=== PATIENT | male | born 1940 | race Caucasian/White ===

== ENCOUNTER 2022-08-12 10:02 | Emergency (ER) | payer MEDICARE, SELFPAY ==
[2022-08-12 10:25] VITALS: BP 167/82; PULSE 54; RESP 15; TEMP 36.3; O2SAT 98; BMI 23.5
--- NOTE | 2022-08-12 10:33 | DI.RAD.S_ITS ---
PROCEDURE: XR RIBS RT MIN 3V W CXR 1V INDICATIONS: rib injury TECHNIQUE: 2 views of the right ribs were acquired, along with a single view chest. COMPARISON: None. FINDINGS: Surgical changes and devices: None. Bones and chest wall: Concern for right anterior 5th rib fracture. No suspicious bony lesions. Overlying soft tissues appear unremarkable. Lungs and pleura: No pleural effusions or pneumothorax. Lungs appear clear. Mediastinum: Mediastinal contours appear normal. Heart size is normal. IMPRESSION: Concern for right anterior 5th rib fracture. Dictated by: Amado Diaz M.D. on 08/12/2022 at 11:28 Approved by: Amado Diaz M.D. on 08/12/2022 at 11:30
--- NOTE | 2022-08-12 12:33 | ED_ITS ---
HPI - Fall <Newton Layne PA-C - Last Filed: 08/12/22 12:36> General Chief Complaint: Fall Stated Complaint: last night fell down a slope of rocks backward Time Seen by Provider: 08/12/22 12:25 Source: patient Mode of arrival: Ambulatory History of Present Illness HPI Narrative: This is an 82-year-old male presents emergency department due to falling down a hill in injuring his right ribs. Patient did not his head. He did not lose consciousness. States he hit his right knee, right forearm, and right ribs but is only concerned with the right ribs today. Patient is not taking blood thinners. Patient does not report any shortness of breath, fevers, or any other concerning signs or symptoms. Related Data Home Medications Medication Instructions Recorded Confirmed Fish Oil (#OMEGA 3) 1,000 mg PO ##0 05/21/12 aspirin 81 mg tablet,delayed 81 mg PO QDAY ##0 05/21/12 release Allergies Allergy/AdvReac Type Severity Reaction Status Date / Time No Known Drug Allergies Allergy Verified 08/12/22 10:30 Review of Systems <Newton Layne PA-C - Last Filed: 08/12/22 12:36> Review of Systems Narrative: GENERAL: Denies chills, fatigue, malaise, fever, sweats. HEENT: Denies sinus pain, ear pain, sore throat, difficulty swallowing, dizziness. RESPIRATORY: Tenderness to palpation in the right anterior ribs, Denies dyspnea, cough, wheezing, hemoptysis, sputum. CARDIOVASCULAR: Denies chest pain, palpitations, orthopnea, edema, GASTROINTESTINAL: Denies nausea, vomiting, abdominal pain, diarrhea, constipation, melena. : Denies dysuria, frequency, incontinence, hematuria, urinary retention. MUSCULOSKELETAL: denies weakness, joint pain, or bony pain SKIN: Denies rash, skin lesions, or other NEUROLOGIC: Denies weakness, headache, numbness, change in speech, confusion, seizures, incoordination. PSYCHIATRIC: No concerning psychosocial issues. 12 point review of systems is negative except for those stated above Patient History <Newton Layne PA-C - Last Filed: 08/12/22 12:36> Social History Smoking Status: Unknown if ever smoked Smoking Status: Unknown if ever smoked alcohol intake frequency: holidays/special occasions only Substance Use Type: does not use Exam <Newton Layne PA-C - Last Filed: 08/12/22 12:36> Narrative Exam Narrative: GENERAL: Well-developed patient, in mild distress. HEAD: Atraumatic. Normocephalic. EYES: Pupils equal round and reactive. Extraocular motions intact. No scleral icterus. No injection or drainage. ENT: Nose without bleeding, purulent drainage. Throat without erythema, tonsillar hypertrophy or exudate. Airway patent. NECK: Trachea midline. Non tender CARDIOVASCULAR: Regular rate and rhythm without murmurs, gallops, or rubs. RESPIRATORY: Tenderness to palpation to the right anterior ribs at approximately the 5th rib, mild ecchymosis, no crepitus. Clear to auscultation. Breath sounds equal bilaterally. No wheezes, rales, or rhonchi. GASTROINTESTINAL: Abdomen soft, non-tender, nondistended. EXTREMITIES: No edema or joint tenderness. BACK: Nontender without deformity or crepitance. No flank tenderness. NEURO: AOx3. SKIN: No rash or erythema of visible areas Initial Vital Signs Initial Vital Signs: Vital Signs Temperature 97.3 F L 08/12/22 10:25 Pulse Rate 54 L 08/12/22 10:25 Respiratory Rate 15 08/12/22 10:25 Blood Pressure 167/82 H 08/12/22 10:25 Pulse Oximetry 98 08/12/22 10:25 Oxygen Delivery Method 08/12/22 10:25 <Lolis Combs DO - Last Filed: 08/13/22 07:48> Initial Vital Signs Initial Vital Signs: Vital Signs Temperature 97.3 F L 08/12/22 10:25 Pulse Rate 54 L 08/12/22 10:25 Respiratory Rate 15 08/12/22 10:25 Blood Pressure 167/82 H 08/12/22 10:25 Pulse Oximetry 98 08/12/22 10:25 Oxygen Delivery Method 08/12/22 10:25 Course <Newton Layne PA-C - Last Filed: 08/12/22 12:36> Orders Ordered: ED Orders 08/12/22 10:33 XR ribs RT min 3V w CXR1V Stat Vital Signs Vital signs: Vital Signs - 8 hr 08/12/22 10:25 Temperature 97.3 F L Pulse Rate 54 L Respiratory Rate 15 Blood Pressure 167/82 H Pulse Oximetry 98 Oxygen Delivery Method Room Air <Lolis Combs DO - Last Filed: 08/13/22 07:48> Orders Ordered: ED Orders 08/12/22 10:33 XR ribs RT min 3V w CXR1V Stat Vital Signs Vital signs: Vital Signs - 8 hr 08/12/22 10:25 Temperature 97.3 F L Pulse Rate 54 L Respiratory Rate 15 Blood Pressure 167/82 H Pulse Oximetry 98 Oxygen Delivery Method Room Air MDM - Fall <Newton Layne PA-C - Last Filed: 08/12/22 12:36> Imaging Data Chest x-ray: Radiologist's Impression: [address] [id number] ReportSigned Patient: Shila bAbott RMR#: [id number]: 9Acct:[id number]/Sex: 82 / MDate of Service: 08/12/22Loc: EDAccession Number: [id number] Procedure: XR ribs RT min 3V w CXR1V Ordering Provider: Lolis Combs D.O. PROCEDURE: XR RIBS RT MIN 3V W CXR 1V INDICATIONS: rib injury TECHNIQUE: 2 views of the right ribs were acquired, along with a single view chest. COMPARISON: None. FINDINGS: Surgical changes and devices: None. Bones and chest wall: Concern for right anterior 5th rib fracture. No suspicious bony lesions. Overlying soft tissues appear unremarkable. Lungs and pleura: No pleural effusions or pneumothorax. Lungs appear clear. Mediastinum: Mediastinal contours appear normal. Heart size is normal. IMPRESSION: Concern for right anterior 5th rib fracture. Dictated by: Amado Diaz M.D. on 08/12/2022 at 11:28 Approved by: Amado Diaz M.D. on 08/12/2022 at 11:30 [facility] Narrative Medical decision making narrative: This is an 82-year-old male presenting to the emergency department due to a recent fall. Patient not his head and was acting completely appropriately and no loss of consciousness, no need for head CT. Patient was not on any blood thinners. The only significant pain the patient was describing was the right anterior rib pain, x-ray showed a 5th anterior rib fracture. No evidence of pneumothorax. Recommended conservative treatment and follow up with PCP. Discharge Plan Departure Patient Disposition: Home Clinical Impression: Closed rib fracture Instructions: DI for Rib Fracture Activity Restrictions/Additional Instructions: Thank you for coming to the [facility] Emergency Department today. As discussed you have a single rib fracture on the right side. This should heal over time. Please use ibuprofen and Tylenol as needed for the pain. I also recommend ice and warm compresses as needed. Please continue to remember to take deep breaths to avoid developing any kind of fluid in the lungs. I hope you feel better soon. Prescriptions: No Action aspirin 81 MG tablet,delayed release (DR/EC) 81 mg PO QDAY Qty: 0 Fish Oil (#OMEGA 3) 1,000 mg PO Qty: 0 Referrals: Hans Lemus MD [Primary Care Provider] - Visit Report Forms: Patient Portal/API <Lolis Combs DO - Last Filed: 08/13/22 07:48> Cosign ED Attending Manpreetature Attestation: I was immediately available in the department for consultation. Documentation has been reviewed. I agree with assessment and plan.
== END 2022-08-12 12:47 | disposition home or self-care (01) ==
PROVIDERS: Emergency Provider Physician Assistant Medical; Family Provider Internal Medicine; PCP Internal Medicine
DX: S22.31XA Fracture of one rib, right side, initial encounter for closed fracture (principal); W15.XXXA Fall from cliff, initial encounter
CPT/HCPCS: 71101; 99281; 99283

== ENCOUNTER → 2024-08-10 14:05 | Outpatient (CLI) | payer MEDICARE, SELFPAY ==
[2024-08-10 15:09] LABS: BUN Creatinine Ratio 14.8 (6-22); Blood Urea Nitrogen 13 mg/dL (9-20); Calcium 9.1 mg/dL (8.4-10.2); Carbon Dioxide 27 mmol/L (22-32); Chloride 103 mmol/L (98-107); Estimated Glomerular Filt Rate > 60 mL/min (>60); Glucose 109 mg/dL (80-110); HEMOLYSIS < 15 (0-50); Potassium 4.3 mmol/L (3.4-5.1); Sodium 136 mmol/L (137-145)
== END ==
LOC: LAB 14:07
PROVIDERS: Family Provider Internal Medicine; PCP Physician Assistant; Referring Provider Internal Medicine; Visit Provider Internal Medicine
DX: R94.39 Abnormal result of other cardiovascular function study (principal)
CPT/HCPCS: 36415; 80048

== ENCOUNTER → 2024-12-05 07:06 | Outpatient (CLI) | payer MEDICARE, SELFPAY ==
--- NOTE | 2024-12-05 07:07 | DI.US.S_ITS ---
PROCEDURE: US ABDOMEN LIMITED INDICATIONS: eval for liver disease TECHNIQUE: Real-time focused scanning was performed of the abdomen, with image documentation. COMPARISON: None. FINDINGS: Liver measures 15.6 cm with normal echotexture. No focal mass. IMPRESSION: Unremarkable. Dictated by: Blessing Ryan M.D. on 12/05/2024 at 12:51 Approved by: Blessing Ryan M.D. on 12/05/2024 at 12:52
== END ==
PROVIDERS: Family Provider Internal Medicine; PCP Physician Assistant; Referring Provider Physician Assistant; Visit Provider Physician Assistant
DX: R71.8 Other abnormality of red blood cells (principal); Z86.2 Personal history of diseases of the blood and blood-forming organs and certain disorders involving the immune mechanism
CPT/HCPCS: 76705